=== PATIENT | male | born 1965 | race Caucasian/White ===

== ENCOUNTER 2020-09-22 11:32 | Emergency (ER) | payer OTHER ==
[2020-09-22] MEDS ORDERED: Sodium Chloride 0.9% 10 ML Syringe FLUSH PRN (11:48)
[2020-09-22] MEDS ORDERED: Albuterol/Ipratropium 3.0-0.5 MG/3 ML Neb Soln NEB ONE (12:53)
--- NOTE | 2020-09-22 12:53 | EDM.PDOC ---
ED HPI GENERAL MEDICAL PROBLEM - General Chief Complaint: Respiratory Problem Stated Complaint: LOW O2 SATS Time Seen by Provider: 09/22/20 11:46 Source of Information: Reports: Patient, RN Notes Reviewed History Limitations: Reports: No Limitations - History of Present Illness INITIAL COMMENTS - FREE TEXT/NARRATIVE: Patient is a 54-year-old male presenting to the emergency department with complaints of a low oxygen saturation cough, shortness of breath over the course of the last week. Patient has a history of COPD and does have home oxygen. States he normally just uses 4 L of oxygen in the evenings, however for the last week he has been using supplemental O2 during the day as well. He was seen by his primary care provider, Dr. Lizbeth Hayward, 1 week ago and started on prednisone 40 mg daily. States he finished this today. Chest x-ray was done at that time and found to be normal as well. Patient feels that his symptoms have not improved with the steroids. He denies any fevers, but states he has had some intermittent chills. Denies any nausea, vomiting, diarrhea, or loss of taste and smell. He has albuterol nebulizer treatments at home. States his last igor atment was around 7:00 this morning. Right Chest Pain Score (Numeric/FACES): 3 - Related Data Allergies Allergy/AdvReac Type Severity Reaction Status Date / Time No Known Allergies Allergy Verified 09/22/20 11:46 Home Meds: Home Meds Albuterol [Proventil Neb Soln] 1 ampule INH BID PRN 11/15/15 [History] Albuterol [Ventolin HFA] 2 puff INH DAILY 11/15/15 [History] Budesonide/Formoterol [Symbicort 160-4.5 MCG] 2 puff INH DAILY 11/15/15 [History] Losartan/Hydrochlorothiazide [Losartan-HCTZ 100-12.5 MG] 1 tab PO DAILY 11/15/15 [History] Albuterol/Ipratropium [DuoNeb 3.0-0.5 MG/3 ML] 3 ml .XX Q4H PRN #20 neb 09/22/20 [Rx] levoFLOXacin [Levaquin] 750 mg PO DAILY #6 tab 09/22/20 [Rx] Past Medical History HEENT History: Reports: Impaired Vision Other HEENT History: Wears glasses Cardiovascular History: Reports: Hypertension Respiratory History: Reports: COPD, SOB - Past Surgical History Musculoskeletal Surgical History: Reports: Carpal Tunnel Social & Family History - Family History Cardiac: Reports: [place] - Caffeine Use Caffeine Use: Reports: Coffee - Recreational Drug Use Recreational Drug Use: No - Living Situation & Occupation Living situation: Reports: Occupation: Employed ED ROS GENERAL - Review of Systems Review Of Systems: See Below Constitutional: Reports: Chills. Denies: Fever, Weakness HEENT: Reports: No Symptoms Respiratory: Reports: Shortness of Breath, Wheezing, Pleuritic Chest Pain, Cough Cardiovascular: Reports: Dyspnea on Exertion. Denies: Lightheadedness, Palpitations, Syncope Endocrine: Reports: No Symptoms GI/Abdominal: Reports: No Symptoms : Reports: No Symptoms Musculoskeletal: Reports: No Symptoms Skin: Reports: No Symptoms Neurological: Reports: No Symptoms Psychiatric: Reports: No Symptoms Hematologic/Lymphatic: Reports: No Symptoms Immunologic: Reports: No Symptoms ED EXAM, GENERAL - Physical Exam Exam: See Below Exam Limited By: No Limitations General Appearance: Alert, WD/WN, No Apparent Distress Respiratory/Chest: No Respiratory Distress, No Accessory Muscle Use, Chest Non- Tender, Wheezing (Faint expiratory) Cardiovascular: Normal Peripheral Pulses, Regular Rate, Rhythm, No Edema, No Gallop, No JVD, No Murmur, No Rub GI/Abdominal: Normal Bowel Sounds, Soft, Non-Tender, No Organomegaly, No Distention, No Abnormal Bruit, No Mass Neurological: Alert, Oriented, CN II-XII Intact, Normal Cognition, Normal Gait, Normal Reflexes, No Motor/Sensory Deficits Psychiatric: Normal Affect, Normal Mood Skin Exam: Warm, Dry, Intact, Normal Color, No Rash Course - Vital Signs Last Recorded V/S: Last Vital Signs Temp 97.6 F 09/22/20 14:05 Pulse 94 09/22/20 14:05 Resp 18 09/22/20 14:05 BP 107/75 09/22/20 14:05 Pulse Ox 94 L 09/22/20 14:05 - Orders/Labs/Meds Orders: Active Orders 24 hr Category Date Time Status Chest 1V Frontal [CR] Stat Exams 09/22/20 11:48 Taken Peripheral IV Insertion Adult [OM.PC] Stat Oth 09/22/20 11:48 Ordered Labs: Laboratory Tests 09/22/20 09/22/2020 Range/Units 11:54 12:15 12:15 WBC 16.06 H (4.23-9.07) K/mm3 RBC 4.24 L (4.63-6.08) M/mm3 Hgb 13.0 L D (13.7-17.5) gm/dl Hct 40.5 (40.1-51.0) % MCV 95.5 H (79.0-92.2) fl MCH 30.7 (25.7-32.2) pg MCHC 32.1 L (32.2-35.5) g/dl RDW Std Deviation 44.3 H (35.1-43.9) fL Plt Count 253 (163-337) K/mm3 MPV 10.2 (9.4-12.3) fl Neut % (Auto) 92.2 H (34.0-67.9) % Lymph % (Auto) 3.9 L (21.8-53.1) % [place] % (Auto) 3.6 L (5.3-12.2) % Eos % (Auto) 0.1 L (0.8-7.0) Baso % (Auto) 0.1 (0.1-1.2) % Neut # (Auto) 14.80 H (1.78-5.38) K/mm3 Lymph # (Auto) 0.62 L (1.32-3.57) K/mm3 [place] # (Auto) 0.58 (0.30-0.82) K/mm3 Eos # (Auto) 0.02 L (0.04-0.54) K/mm3 Baso # (Auto) 0.02 (0.01-0.08) K/mm3 Manual Slide Review Abnormal smear D-Dimer, Quantitative 0.50 (0.19-0.50) mg/L Sodium (136-145) mEq/L Potassium (3.5-5.1) mEq/L Chloride (98-107) mEq/L Carbon Dioxide (21-32) mEq/L Anion Gap (5-15) BUN (7-18) mg/dL Creatinine (0.7-1.3) mg/dL Est Cr Clr Drug Dosing mL/min Estimated GFR (MDRD) (>60) mL/min BUN/Creatinine Ratio (14-18) Glucose (74-106) mg/dL Lactic Acid (0.4-2.0) mmol/L Calcium (8.5-10.1) mg/dL Ferritin (26-388) ng/ml Total Bilirubin (0.2-1.0) mg/dL AST (15-37) U/L ALT (16-63) U/L Alkaline Phosphatase (46-116) U/L Lactate Dehydrogenase (85-227) U/L Troponin I (0.00-0.056) ng/mL C-Reactive Protein (<1.0) mg/dL NT-Pro-B Natriuret Pep (0-125) pg/mL Total Protein (6.4-8.2) g/dl Albumin (3.4-5.0) g/dl Globulin gm/dL Albumin/Globulin Ratio (1-2) SARS-CoV-2 RNA (RACHELLE) Negative (NEGATIVE) 09/22/20 09/22/20 09/22/20 Range/Units 12:15 12:15 12:15 WBC (4.23-9.07) K/mm3 RBC (4.63-6.08) M/mm3 Hgb (13.7-17.5) gm/dl Hct (40.1-51.0) % MCV (79.0-92.2) fl MCH (25.7-32.2) pg MCHC (32.2-35.5) g/dl RDW Std Deviation (35.1-43.9) fL Plt Count (163-337) K/mm3 MPV (9.4-12.3) fl Neut % (Auto) (34.0-67.9) % Lymph % (Auto) (21.8-53.1) % [place] % (Auto) (5.3-12.2) % Eos % (Auto) (0.8-7.0) Baso % (Auto) (0.1-1.2) % Neut # (Auto) (1.78-5.38) K/mm3 Lymph # (Auto) (1.32-3.57) K/mm3 [place] # (Auto) (0.30-0.82) K/mm3 Eos # (Auto) (0.04-0.54) K/mm3 Baso # (Auto) (0.01-0.08) K/mm3 Manual Slide Review D-Dimer, Quantitative (0.19-0.50) mg/L Sodium 132 L (136-145) mEq/L Potassium 3.5 (3.5-5.1) mEq/L Chloride 96 L (98-107) mEq/L Carbon Dioxide 29 (21-32) mEq/L Anion Gap 10.5 (5-15) BUN 20 H (7-18) mg/dL Creatinine 0.9 (0.7-1.3) mg/dL Est Cr Clr Drug Dosing 95.76 mL/min Estimated GFR (MDRD) > 60 (>60) mL/min BUN/Creatinine Ratio 22.2 H (14-18) Glucose 120 H (74-106) mg/dL Lactic Acid 0.8 (0.4-2.0) mmol/L Calcium 8.8 (8.5-10.1) mg/dL Ferritin (26-388) ng/ml Total Bilirubin 0.9 (0.2-1.0) mg/dL AST 21 (15-37) U/L ALT 25 (16-63) U/L Alkaline Phosphatase 67 (46-116) U/L Lactate Dehydrogenase (85-227) U/L Troponin I < 0.017 (0.00-0.056) ng/mL C-Reactive Protein 18.2 H* (<1.0) mg/dL NT-Pro-B Natriuret Pep 87 (0-125) pg/mL Total Protein 7.3 (6.4-8.2) g/dl Albumin 3.1 L (3.4-5.0) g/dl Globulin 4.2 gm/dL Albumin/Globulin Ratio 0.7 L (1-2) SARS-CoV-2 RNA (RACHELLE) (NEGATIVE) 09/22/20 09/22/20 Range/Units 12:15 12:15 WBC (4.23-9.07) K/mm3 RBC (4.63-6.08) M/mm3 Hgb (13.7-17.5) gm/dl Hct (40.1-51.0) % MCV (79.0-92.2) fl MCH (25.7-32.2) pg MCHC (32.2-35.5) g/dl RDW Std Deviation (35.1-43.9) fL Plt Count (163-337) K/mm3 MPV (9.4-12.3) fl Neut % (Auto) (34.0-67.9) % Lymph % (Auto) (21.8-53.1) % [place] % (Auto) (5.3-12.2) % Eos % (Auto) (0.8-7.0) Baso % (Auto) (0.1-1.2) % Neut # (Auto) (1.78-5.38) K/mm3 Lymph # (Auto) (1.32-3.57) K/mm3 [place] # (Auto) (0.30-0.82) K/mm3 Eos # (Auto) (0.04-0.54) K/mm3 Baso # (Auto) (0.01-0.08) K/mm3 Manual Slide Review D-Dimer, Quantitative (0.19-0.50) mg/L Sodium (136-145) mEq/L Potassium (3.5-5.1) mEq/L Chloride (98-107) mEq/L Carbon Dioxide (21-32) mEq/L Anion Gap (5-15) BUN (7-18) mg/dL Creatinine (0.7-1.3) mg/dL Est Cr Clr Drug Dosing mL/min Estimated GFR (MDRD) (>60) mL/min BUN/Creatinine Ratio (14-18) Glucose (74-106) mg/dL Lactic Acid (0.4-2.0) mmol/L Calcium (8.5-10.1) mg/dL Ferritin 782 H (26-388) ng/ml Total Bilirubin (0.2-1.0) mg/dL AST (15-37) U/L ALT (16-63) U/L Alkaline Phosphatase (46-116) U/L Lactate Dehydrogenase 165 (85-227) U/L Troponin I (0.00-0.056) ng/mL C-Reactive Protein (<1.0) mg/dL NT-Pro-B Natriuret Pep (0-125) pg/mL Total Protein (6.4-8.2) g/dl Albumin (3.4-5.0) g/dl Globulin gm/dL Albumin/Globulin Ratio (1-2) SARS-CoV-2 RNA (RACHELLE) (NEGATIVE) Meds: Medications Discontinued Medications Generic Name Dose Route Start Last Admin Trade Name Jer[place]o PRN Reason Stop Dose Admin Albuterol/Ipratropium 3 ml 09/22/20 12:53 09/22/20 13:04 Duoneb 3.0-0.5 Mg/3 Ml NEB 09/22/20 12:54 3 ml ONETIME ONE Administration Levofloxacin 750 mg 09/22/20 13:50 09/22/20 13:58 Levaquin PO 09/22/20 13:51 750 mg ONETIME ONE Administration Sodium Chloride 10 ml 09/22/20 11:48 09/22/20 12:15 Saline Flush FLUSH 10 ml ASDIRECTED PRN Administration Keep Vein Open - Re-Assessments/Exams Free Text/Narrative Re-Assessment/Exam: Patient is a 54-year-old male presenting to the emergency department with complaints of ongoing cough and shortness of breath. He has a history of COPD and was placed on prednisone 40 mg daily 1 week ago. He states he has had little to no improvement in symptoms since the onset of steroid treatment. He has had occasional chills but denies any known fever. Denies any gastrointestinal complaints. Oxygen saturation at rest was 93 to 94% on room air. I have ordered septic work-up, chest x-ray, EKG as well as a 1 hour Covid test. 09/22/20 13:53 Hematology was significant for a WBC elevated at 16.06, hemoglobin 13.0, sodium 132, BUN 20, ferritin 782, CRP 18.2. Patient was found to be Covid negative. Chest x-ray shows increased density in the right lower lobe likely consistent with a bacterial pneumonia. As there is no organ dysfunction, patient rules out for severe sepsis. We will start the patient on oral Levaquin. I will also send a prescription for DuoNeb's as opposed to his albuterol. Recommend continuing use of home oxygen as needed. Discussed return precautions. Discharge instructions as documented. Departure - Departure Time of Disposition: 13:54 Disposition: Home, Self-Care 01 Condition: Good Clinical Impression: COPD exacerbation Pneumonia Qualifiers: Pneumonia type: due to unspecified organism Laterality: right Lung location: lower lobe of lung Qualified Code(s): J18.9 - Pneumonia, unspecified organism - Discharge Information *PRESCRIPTION DRUG MONITORING PROGRAM REVIEWED*: No *COPY OF PRESCRIPTION DRUG MONITORING REPORT IN PATIENT DARON: No Prescriptions: Albuterol/Ipratropium [DuoNeb 3.0-0.5 MG/3 ML] 3 ml .XX Q4H PRN #20 neb PRN Reason: Shortness Of Breath levoFLOXacin [Levaquin] 750 mg PO DAILY #6 tab Instructions: Chronic Obstructive Pulmonary Disease Exacerbation, [id number], Community-Acquired Pneumonia, Adult, [id number] Referrals: Martin Hernandez MD [Primary Care Provider] - Forms: ED Department Discharge Additional Instructions: You were seen in the emergency department today for ongoing shortness of breath and cough over the course the last week. Work-up included blood work, chest x- ray, EKG, and a Covid test. Results of your work-up are consistent with a COPD exacerbation with pneumonia. Your Covid test was negative. You have been started on an antibiotic, Levaquin. Take this medication as prescribed. A prescription for DuoNeb breathing treatments is also been prescribed. Use these every 4 hours as needed. This replaces your albuterol breathing treatments. Continue to use your home oxygen as needed. If you are experiencing any worsening symptoms, please not hesitate to return to the emergency department. Sepsis Event Note (ED) - Evaluation Sepsis Screening Result: Sepsis Risk - Focused Exam Vital Signs: Vital Signs Temp Pulse Resp BP Pulse Ox Pulse Ox 09/22/20 14:05 97.6 F 94 18 107/75 94 L 09/22/20 13:05 93 L 09/22/20 11:38 98.6 F 102 H 22 H 129/93 H 90 L - My Orders Last 24 Hours: My Active Orders 09/22/20 11:48 Chest 1V Frontal [CR] Stat Peripheral IV Insertion Adult [OM.PC] Stat - Assessment/Plan Last 24 Hours: My Active Orders 09/22/20 11:48 Chest 1V Frontal [CR] Stat Peripheral IV Insertion Adult [OM.PC] Stat
[2020-09-22] MEDS ORDERED: Levofloxacin 750 MG Tab PO ONE (13:50)
[2020-09-22 14:06] VITALS: BP 107/75; PULSE 94
--- NOTE | 2020-09-23 07:41 | CR ---
Chest: Portable view of the chest was obtained. Comparison: Prior chest x-ray of 09/14/16. Findings: Osseous: Heart size and mediastinum are within normal limits. Lungs: Mild increased density noted within the right lung base. Lungs otherwise are clear. Osseous: Bony structures are grossly intact. Impression: 1. Mild increased density with right lung base. Findings are suspicious for small area of pneumonia. Diagnostic code #3
== END 2020-09-22 14:12 | disposition home or self-care (01) ==
LOC: JD.ED 11:32
DX: J44.1 Chronic obstructive pulmonary disease with (acute) exacerbation (principal); J18.9 Pneumonia, unspecified organism; I10 Essential (primary) hypertension; Z79.899 Other long term (current) drug therapy; Z20.828 Contact with and (suspected) exposure to other viral communicable diseases
CPT/HCPCS: 36415; 71045; 71045-26; 80053; 82728; 83605; 83615; 83880; 84484; 85025; 85379; 86140; 93005; 93010; 94640; 99284; 99285-25; A9270-GY; J7620-GY; U0002

== ENCOUNTER 2021-10-22 16:26 | Inpatient (IN) | payer MEDICARE, OTHER ==
[2021-10-22] MEDS ORDERED: Sodium Chloride 0.9% 10 ML Syringe FLUSH PRN (16:32)
[2021-10-22] MEDS ORDERED: Albuterol/Ipratropium 3.0-0.5 MG/3 ML Neb Soln NEB ONE ×2 (16:33→18:13)
[2021-10-22] MEDS ORDERED: Albuterol/Ipratropium 3.0-0.5 MG/3 ML Neb Soln ONE (16:34)
[2021-10-22] MEDS ORDERED: methylPREDNISolone Sodium Succinate 125 MG/2 ML SDV IVPUSH ONE (16:34)
[2021-10-22] MEDS ORDERED: Magnesium Sulfate/Water 2 GM in Premix Bag 1 BAG IV ONE (16:34)
[2021-10-22] MEDS ORDERED: FLU Vacc QS2021-22 36MOS UP/PF 60 MCG/0.5 ML Syringe IM ONE (17:15)
[2021-10-22 19:00] LABS: CORONAVIRUS COVID-19 NAA NEGATIVE (NEGATIVE)
[2021-10-22] MEDS: Oseltamivir 75 MG Cap PO SCH (23:34)
[2021-10-22] MEDS: Albuterol/Ipratropium 3.0-0.5 MG/3 ML Neb Soln NEB SCH (23:36)
[2021-10-23] MEDS: Albuterol/Ipratropium 3.0-0.5 MG/3 ML Neb Soln NEB SCH ×4 (01:57→21:12)
[2021-10-23] MEDS ORDERED: LORazepam 2 MG/ML SDV IVPUSH PRN (07:10)
[2021-10-23] MEDS ORDERED: Albuterol 6.7 GM Inhaler INH PRN (08:10)
[2021-10-23] MEDS ORDERED: Ondansetron 4 MG Tab.DIS PO PRN (08:10)
[2021-10-23] MEDS ORDERED: Albuterol/Ipratropium 3.0-0.5 MG/3 ML Neb Soln NEB PRN (08:10)
[2021-10-23] MEDS ORDERED: Ondansetron 4 MG/2 ML SDV IV PRN (08:10)
[2021-10-23] MEDS: Oseltamivir 75 MG Cap PO SCH ×2 (08:27→20:55)
[2021-10-23] MEDS ORDERED: methylPREDNISolone Sodium Succinate 40 MG/1 ML SDV IVPUSH SCH (09:00)
[2021-10-23] MEDS ORDERED: Enoxaparin 40 MG/0.4 ML Syringe SUBCUT ONE (09:15)
[2021-10-23] MEDS: Nicotine 14 MG/24 Hr Patch TRDERM SCH (10:39)
[2021-10-23] MEDS: Sodium Chloride 0.9% 1,000 ML IV SCH ×2 (10:50→20:56)
[2021-10-23] MEDS: Azithromycin 500 MG in Sodium Chloride 0.9% 250 ML IV SCH (10:54)
[2021-10-23] MEDS ORDERED: Sodium Chloride 0.9% 10 ML Syringe FLUSH PRN (13:28)
[2021-10-23] MEDS ORDERED: Iopamidol 612 MG/ML 100 ML Bottle IVPUSH ONE (13:28)
[2021-10-23] MEDS: guaiFENesin 600 MG Tab.ER PO SCH ×2 (13:54→20:54)
[2021-10-23] MEDS: methylPREDNISolone Sodium Succinate 40 MG/1 ML SDV IVPUSH SCH (20:55)
[2021-10-24] MEDS: Albuterol/Ipratropium 3.0-0.5 MG/3 ML Neb Soln NEB SCH ×4 (06:15→20:25)
[2021-10-24] MEDS: methylPREDNISolone Sodium Succinate 40 MG/1 ML SDV IVPUSH SCH ×2 (08:30→21:25)
[2021-10-24] MEDS: guaiFENesin 600 MG Tab.ER PO SCH ×2 (08:31→21:26)
[2021-10-24] MEDS: Oseltamivir 75 MG Cap PO SCH ×2 (08:31→21:26)
[2021-10-24] MEDS: Enoxaparin 40 MG/0.4 ML Syringe SUBCUT SCH (08:31)
[2021-10-24] MEDS: Azithromycin 500 MG in Sodium Chloride 0.9% 250 ML IV SCH (08:31)
[2021-10-24] MEDS: Nicotine 14 MG/24 Hr Patch TRDERM SCH (08:32)
[2021-10-24] MEDS: Doxycycline 100 MG in Sodium Chloride 0.9% 100 ML IV SCH ×2 (09:53→21:25)
[2021-10-25] MEDS: Albuterol/Ipratropium 3.0-0.5 MG/3 ML Neb Soln NEB SCH ×4 (06:30→20:37)
[2021-10-25] MEDS: guaiFENesin 600 MG Tab.ER PO SCH ×2 (09:30→20:53)
[2021-10-25] MEDS: Oseltamivir 75 MG Cap PO SCH ×2 (09:30→20:53)
[2021-10-25] MEDS: Enoxaparin 40 MG/0.4 ML Syringe SUBCUT SCH (09:31)
[2021-10-25] MEDS: Doxycycline 100 MG in Sodium Chloride 0.9% 100 ML IV SCH ×2 (09:32→20:55)
[2021-10-25] MEDS: methylPREDNISolone Sodium Succinate 40 MG/1 ML SDV IVPUSH SCH ×2 (09:36→20:54)
[2021-10-25] MEDS: Nicotine 14 MG/24 Hr Patch TRDERM SCH (09:50)
[2021-10-25] MEDS: Pravastatin 20 MG Tab PO SCH (20:54)
[2021-10-26] MEDS: Albuterol/Ipratropium 3.0-0.5 MG/3 ML Neb Soln NEB SCH ×4 (06:06→20:41)
[2021-10-26] MEDS: methylPREDNISolone Sodium Succinate 40 MG/1 ML SDV IVPUSH SCH (08:12)
[2021-10-26] MEDS: guaiFENesin 600 MG Tab.ER PO SCH ×2 (08:12→20:00)
[2021-10-26] MEDS: amLODIPine 2.5 MG Tab PO SCH (08:13)
[2021-10-26] MEDS: Oseltamivir 75 MG Cap PO SCH ×2 (08:13→20:00)
[2021-10-26] MEDS: Nicotine 14 MG/24 Hr Patch TRDERM SCH (08:18)
[2021-10-26] MEDS: Enoxaparin 40 MG/0.4 ML Syringe SUBCUT SCH (08:18)
[2021-10-26] MEDS: Doxycycline 100 MG in Sodium Chloride 0.9% 100 ML IV SCH (08:18)
[2021-10-26] MEDS: predniSONE 20 MG Tab PO SCH (20:00)
[2021-10-26] MEDS: Doxycycline 100 MG Cap PO SCH (20:00)
[2021-10-26] MEDS: Pravastatin 20 MG Tab PO SCH (20:00)
[2021-10-27] MEDS: Albuterol/Ipratropium 3.0-0.5 MG/3 ML Neb Soln NEB SCH ×4 (05:50→20:29)
[2021-10-27] MEDS ORDERED: LORazepam 2 MG/ML SDV IVPUSH ONE ×2 (07:38→10:00)
[2021-10-27] MEDS: Albuterol 0.083% 2.5 MG/3 ML Neb Soln NEB PRN (07:52)
[2021-10-27] MEDS ORDERED: LORazepam 2 MG/ML SDV IVPUSH STA ×2 (08:58→13:14)
[2021-10-27] MEDS: Enoxaparin 40 MG/0.4 ML Syringe SUBCUT SCH (09:20)
[2021-10-27] MEDS: amLODIPine 2.5 MG Tab PO SCH (09:23)
[2021-10-27] MEDS: guaiFENesin 600 MG Tab.ER PO SCH ×2 (09:24→20:51)
[2021-10-27] MEDS: Losartan 100 MG Tab PO SCH (09:24)
[2021-10-27] MEDS: predniSONE 20 MG Tab PO SCH (09:25)
[2021-10-27] MEDS: Oseltamivir 75 MG Cap PO SCH (09:25)
[2021-10-27] MEDS: Doxycycline 100 MG Cap PO SCH ×2 (09:26→20:50)
[2021-10-27] MEDS ORDERED: LORazepam 2 MG/ML SDV ONE ×2 (10:11→13:15)
[2021-10-27] MEDS: Pravastatin 20 MG Tab PO SCH (20:50)
[2021-10-28] MEDS: Albuterol 0.083% 2.5 MG/3 ML Neb Soln NEB PRN (00:25)
[2021-10-28] MEDS ORDERED: LORazepam 2 MG/ML SDV IVPUSH ONE ×3 (03:15→18:34)
[2021-10-28] MEDS ORDERED: LORazepam 2 MG/ML SDV ONE ×2 (03:19→15:47)
[2021-10-28] MEDS: Albuterol/Ipratropium 3.0-0.5 MG/3 ML Neb Soln NEB SCH ×4 (05:23→20:44)
[2021-10-28] MEDS: methylPREDNISolone Sodium Succinate 125 MG/2 ML SDV IVPUSH SCH (09:16)
[2021-10-28] MEDS: Enoxaparin 40 MG/0.4 ML Syringe SUBCUT SCH (09:16)
[2021-10-28] MEDS: guaiFENesin 600 MG Tab.ER PO SCH ×2 (09:16→20:41)
[2021-10-28] MEDS: Doxycycline 100 MG Cap PO SCH ×2 (09:16→20:41)
[2021-10-28] MEDS: Losartan 100 MG Tab PO SCH (09:17)
[2021-10-28] MEDS: amLODIPine 2.5 MG Tab PO SCH (09:18)
[2021-10-28] MEDS ORDERED: Magnesium Sulfate/Water 2 GM in Premix Bag 1 BAG IV ONE (10:30)
[2021-10-28] MEDS: Pravastatin 20 MG Tab PO SCH (20:41)
[2021-10-29] MEDS: Albuterol/Ipratropium 3.0-0.5 MG/3 ML Neb Soln NEB SCH ×4 (05:24→20:13)
[2021-10-29] MEDS: Enoxaparin 40 MG/0.4 ML Syringe SUBCUT SCH (09:01)
[2021-10-29] MEDS: amLODIPine 2.5 MG Tab PO SCH (09:02)
[2021-10-29] MEDS: guaiFENesin 600 MG Tab.ER PO SCH ×2 (09:02→20:36)
[2021-10-29] MEDS: Doxycycline 100 MG Cap PO SCH (09:03)
[2021-10-29] MEDS: methylPREDNISolone Sodium Succinate 125 MG/2 ML SDV IVPUSH SCH (09:03)
[2021-10-29] MEDS: Losartan 100 MG Tab PO SCH (09:03)
[2021-10-29] MEDS ORDERED: LORazepam 2 MG/ML SDV IVPUSH ONE (11:49)
[2021-10-29] MEDS ORDERED: LORazepam 2 MG/ML SDV ONE (11:51)
[2021-10-29] MEDS: Acetaminophen 325 MG Tab PO PRN (20:36)
[2021-10-29] MEDS: Pravastatin 20 MG Tab PO SCH (20:38)
[2021-10-29] MEDS: diphenhydrAMINE 25 MG Cap PO PRN (20:38)
[2021-10-30] MEDS: Albuterol/Ipratropium 3.0-0.5 MG/3 ML Neb Soln NEB SCH ×4 (05:38→21:11)
[2021-10-30] MEDS ORDERED: predniSONE 20 MG Tab PO SCH (07:34)
[2021-10-30] MEDS: Losartan 100 MG Tab PO SCH (09:42)
[2021-10-30] MEDS: Enoxaparin 40 MG/0.4 ML Syringe SUBCUT SCH (09:42)
[2021-10-30] MEDS: amLODIPine 2.5 MG Tab PO SCH (09:43)
[2021-10-30] MEDS: guaiFENesin 600 MG Tab.ER PO SCH ×2 (09:43→22:56)
[2021-10-30] MEDS: diphenhydrAMINE 25 MG Cap PO PRN (22:57)
[2021-10-30] MEDS: Pravastatin 20 MG Tab PO SCH (22:57)
[2021-10-31] MEDS: Albuterol/Ipratropium 3.0-0.5 MG/3 ML Neb Soln NEB SCH ×4 (05:22→21:13)
[2021-10-31] MEDS ORDERED: predniSONE 20 MG Tab PO SCH (07:00)
[2021-10-31] MEDS: guaiFENesin 600 MG Tab.ER PO SCH ×2 (08:19→20:45)
[2021-10-31] MEDS: Enoxaparin 40 MG/0.4 ML Syringe SUBCUT SCH (08:19)
[2021-10-31] MEDS: predniSONE 20 MG Tab PO SCH (08:19)
[2021-10-31] MEDS: Losartan 100 MG Tab PO SCH (08:24)
[2021-10-31] MEDS: amLODIPine 2.5 MG Tab PO SCH (08:25)
[2021-10-31] MEDS: Acetaminophen 325 MG Tab PO PRN ×2 (08:37→16:55)
[2021-10-31] MEDS: diphenhydrAMINE 25 MG Cap PO PRN (20:46)
[2021-10-31] MEDS: Pravastatin 20 MG Tab PO SCH (20:46)
[2021-11-01] MEDS: Albuterol/Ipratropium 3.0-0.5 MG/3 ML Neb Soln NEB SCH ×4 (05:43→20:37)
[2021-11-01] MEDS: predniSONE 20 MG Tab PO SCH (08:12)
[2021-11-01] MEDS: Enoxaparin 40 MG/0.4 ML Syringe SUBCUT SCH (08:14)
[2021-11-01] MEDS: guaiFENesin 600 MG Tab.ER PO SCH ×2 (08:14→21:41)
[2021-11-01] MEDS: Losartan 100 MG Tab PO SCH (11:15)
[2021-11-01] MEDS: amLODIPine 2.5 MG Tab PO SCH (13:44)
[2021-11-01] MEDS: Phenol 1.4% Oral Spray 177 ML Bottle MUCMEM PRN ×2 (15:58→21:45)
[2021-11-01] MEDS: Pravastatin 20 MG Tab PO SCH (21:41)
[2021-11-02] MEDS: Phenol 1.4% Oral Spray 177 ML Bottle MUCMEM PRN ×3 (04:12→12:21)
[2021-11-02] MEDS: Albuterol/Ipratropium 3.0-0.5 MG/3 ML Neb Soln NEB SCH (05:29)
[2021-11-02] MEDS ORDERED: predniSONE 20 MG Tab PO SCH (07:00)
[2021-11-02 08:06] VITALS: PULSE 92
[2021-11-02] MEDS: guaiFENesin 600 MG Tab.ER PO SCH (08:21)
[2021-11-02] MEDS: Enoxaparin 40 MG/0.4 ML Syringe SUBCUT SCH (08:21)
[2021-11-02] MEDS ORDERED: Albuterol/Ipratropium 3.0-0.5 MG/3 ML Neb Soln NEB PRN (08:49)
[2021-11-02] MEDS: amLODIPine 2.5 MG Tab PO SCH (09:57)
[2021-11-02] MEDS: Losartan 100 MG Tab PO SCH (09:57)
[2021-11-02 11:50] VITALS: BP 115/78
[2021-11-02] MEDS: Acetaminophen 325 MG Tab PO PRN (12:21)
== END 2021-11-02 16:18 | disposition home health service (06) | DRG 193 ==
LOC: JD.ED 16:26 → JD.MS 20:21 → JD.ICU 10-27 11:18 → JD.MS 10-30 14:30
PROVIDERS: ADMIT Family Medicine; ATTEND Internal Medicine
PROC: 5A09457 Assistance with Respiratory Ventilation, 24-96 Consecutive Hours, Continuous Positive Airway Pressure (ICD-10-PCS; principal; 2021-10-22)
DX: J10.1 Influenza due to other identified influenza virus with other respiratory manifestations (principal); J10.00 Influenza due to other identified influenza virus with unspecified type of pneumonia; R09.02 Hypoxemia; J96.21 Acute and chronic respiratory failure with hypoxia; J96.22 Acute and chronic respiratory failure with hypercapnia; N17.9 Acute kidney failure, unspecified; J44.1 Chronic obstructive pulmonary disease with (acute) exacerbation; Z20.822 Contact with and (suspected) exposure to COVID-19; I10 Essential (primary) hypertension; Z87.01 Personal history of pneumonia (recurrent); Z99.81 Dependence on supplemental oxygen; F17.210 Nicotine dependence, cigarettes, uncomplicated; Z78.1 Physical restraint status; F41.9 Anxiety disorder, unspecified; K59.00 Constipation, unspecified; Z79.899 Other long term (current) drug therapy; H54.7 Unspecified visual loss; Z86.19 Personal history of other infectious and parasitic diseases
CPT/HCPCS: 0240U; 36415; 36600; 51798; 71045; 74177; 80048; 80053; 81001; 82803; 83735; 84100; 84145; 84484; 85025; 86140; 93005; 94640; 94660; 94667; 94668; 94761; 94762; 96365; 96366; 96375; 97110; 97116; 97162; 99285; A9270-GY; J0456; J1650; J2060; J2920; J2930; J3475; J3490; J7030; J7050; J7512; J7620-GY; Q9967

== ENCOUNTER 2025-03-07 07:19 | Day surgery (SDC) | payer MEDICARE, OTHER ==
[2025-03-07] MEDS: Lidocaine 1% PF 2 ML SDV INJECT SCH (06:54)
[2025-03-07] MEDS: Phenylephrine 2.5% Ophth Soln 2 ML Bot EYERT SCH (06:54)
[2025-03-07] MEDS: Cefuroxime 10 MG/ML SYRINGE EYERT SCH (06:54)
[2025-03-07] MEDS: Tetracaine HCl/PF 0.5% 4 ML Bottle EYEBOTH SCH (06:54)
[2025-03-07] MEDS: Pilocarpine 4% Ophth Soln 15 ML Bot EYERT SCH (06:55)
[2025-03-07] MEDS: Polymyxin B/Trimethoprim 10 ML Bottle EYERT SCH (06:55)
[2025-03-07] MEDS: Brimonidine 0.2% Ophth Soln 5 ML Bottle EYERT SCH (06:55)
[2025-03-07] MEDS: Tropicamide 1% Ophth Soln 3 ML Bottle EYERT SCH (07:46)
[2025-03-07 10:06] VITALS: BP 131/86; PULSE 81
== END 2025-03-07 09:39 | disposition home or self-care (01) ==
LOC: JD.SDS 07:19
PROVIDERS: ATTEND Ophthalmology
DX: H25.813 Combined forms of age-related cataract, bilateral (principal); I10 Essential (primary) hypertension; J44.89 Other specified chronic obstructive pulmonary disease; E78.2 Mixed hyperlipidemia; Z87.891 Personal history of nicotine dependence
CPT/HCPCS: 66984; A9270; J0697; J3490

== ENCOUNTER 2025-04-04 07:34 | Day surgery (SDC) | payer MEDICARE, OTHER ==
[2025-04-04 07:45] VITALS: BP 120/78; PULSE 71
[2025-04-04] MEDS: Polymyxin B/Trimethoprim 10 ML Bottle EYELF SCH (07:45)
[2025-04-04] MEDS: Brimonidine 0.2% Ophth Soln 5 ML Bottle EYELF SCH (07:50)
[2025-04-04] MEDS: Phenylephrine 2.5% Ophth Soln 2 ML Bot EYELF SCH (07:58)
[2025-04-04] MEDS: Tropicamide 1% Ophth Soln 3 ML Bottle EYELF SCH (08:06)
[2025-04-04] MEDS: Tetracaine HCl/PF 0.5% 4 ML Bottle EYEBOTH SCH (09:03)
[2025-04-04] MEDS: Lidocaine 1% PF 2 ML SDV INJECT SCH (09:43)
[2025-04-04] MEDS: Cefuroxime 10 MG/ML SYRINGE EYELF SCH (09:51)
[2025-04-04] MEDS: Pilocarpine 4% Ophth Soln 15 ML Bot EYELF SCH (09:52)
== END 2025-04-04 10:02 | disposition home or self-care (01) ==
LOC: JD.SDS 07:34
PROVIDERS: ATTEND Ophthalmology
DX: H26.9 Unspecified cataract (principal); H25.812 Combined forms of age-related cataract, left eye; H52.31 Anisometropia; H21.81 Floppy iris syndrome; H40.032 Anatomical narrow angle, left eye; H57.813 Brow ptosis, bilateral; H02.831 Dermatochalasis of right upper eyelid; H02.834 Dermatochalasis of left upper eyelid; J44.89 Other specified chronic obstructive pulmonary disease; I10 Essential (primary) hypertension; E78.2 Mixed hyperlipidemia; Z79.899 Other long term (current) drug therapy
CPT/HCPCS: A9270-GY; J3490

== ENCOUNTER 2025-07-19 12:35 | Inpatient (IN) | payer MEDICARE, OTHER ==
[2025-07-19 13:36] LABS: BASE EXCESS ARTERIAL 20.6 (-2-2.0); BICARBONATE,ARTERIAL 50.6 meq/L (22.0-26.0); O2 SATURATION ARTERIAL 98.4 % (96.0-97.0); PCO2 ARTERIAL 96.0 mmHg (35.0-45.0); PO2 ARTERIAL 82.0 mmHg (80.0-100.0)
[2025-07-19 13:44] LABS: BASOPHILS ABSOLUTE AUTO 0.0 K/mm3 (0.0-0.2); BASOPHILS PERCENT AUTO 0.2 % (0.0-1.0); EOSINOPHILS ABSOLUTE AUTO 0.1 K/mm3 (0.0-0.4); EOSINOPHILS PERCENT AUTO 0.3 % (0.0-6.0); IMMATURE GRAN ABSOLUTE AUTO 0.10 K/mm3 (0.00-0.05); IMMATURE GRAN PERCENT AUTO 0.6 % (0.0-0.4); LYMPHOCYTES ABSOLUTE AUTO 1.3 K/mm3 (1.0-4.8); LYMPHOCYTES PERCENT AUTO 7.1 % (24.0-44.0); MEAN PLATELET VOLUME 10.6 fl (9.4-12.4); MONOCYTES ABSOLUTE AUTO 1.2 K/mm3 (0.0-0.8); MONOCYTES PERCENT AUTO 6.6 % (0.0-8.0); NEUTROPHILS ABSOLUTE AUTO 15.2 K/mm3 (1.8-7.7); NEUTROPHILS PERCENT AUTO 85.2 % (41.0-71.0); NRBC ABSOLUTE 0.00 (0.00-0.02); NRBC PERCENT 0.0 % (0.0-0.2); PLATELET COUNT,PLT 178 K/mm3 (150-400); RED BLOOD CELL COUNT 3.47 M/mm3 (4.52-5.90); WHITE BLOOD CELL COUNT,WBC 17.86 K/mm3 (3.9-11.3)
[2025-07-19 14:13] LABS: A/G RATIO 0.9 (1-2); ALANINE AMINOTRANSFERASE,ALT 19.0 U/L (16-63); ASPARTATE AMNIOTRANSFERASE,AST 18.0 U/L (15-37); BILIRUBIN TOTAL 0.6 mg/dL (0.2-1.0); BLOOD UREA NITROGEN,BUN 18.0 mg/dL (7-18); CHLORIDE,CL 93.0 mEq/L (98-107); CREATININE 0.6 mg/dL (0.7-1.3); EST CRCL DRUG DOSING (CG) 143.7 mL/min; ESTIMATED GFR 111.0 mL/min (>60); GLUCOSE RANDOM 129.0 mg/dL (70-99); POTASSIUM,K 4.0 mEq/L (3.5-5.1); PROTEIN TOTAL,TP 6.8 g/dl (6.4-8.2); SODIUM,NA 140.0 mEq/L (136-145); TROPONIN I HIGH SENSITIVITY 10.0 pg/mL (<=76); TSH 0.424 uIU/mL (0.358-3.74)
[2025-07-19 14:23] LABS: CORONAVIRUS COVID-19 NAA NEGATIVE (NEGATIVE); INFLUENZA A NAA NEGATIVE (NEGATIVE); RESPIRATORY SYNCYTIAL VIR NAA NEGATIVE (NEGATIVE)
[2025-07-19 14:30] LABS: CARBON DIOXIDE,CO2 32.0 mEq/L (21-32)
[2025-07-19] MEDS: Sodium Chloride 0.9% 10 ML Syringe FLUSH PRN (14:31)
[2025-07-19 14:57] LABS: APPEARANCE,URINE CLEAR (Clear); GLUCOSE,URINE NEGATIVE (Negative); OCCULT BLOOD,URINE 1+ (Negative)
[2025-07-19 15:05] LABS: EPITHELIAL CELLS,URINE 0-5 /hpf (0-5)
[2025-07-19 16:32] LABS: O2 SATURATION ARTERIAL 95.4 % (96.0-97.0); PCO2 ARTERIAL 83.0 mmHg (35.0-45.0); PO2 ARTERIAL 62.0 mmHg (80.0-100.0)
[2025-07-19 16:33] LABS: BASE EXCESS ARTERIAL 22.8 (-2-2.0); BICARBONATE,ARTERIAL 51.4 meq/L (22.0-26.0)
[2025-07-19] MEDS: cefTRIAXone 1 GM in Water For Injection, Sterile 10 ML IVPUSH ONE (17:22)
[2025-07-19] MEDS ORDERED: Albuterol 0.083% 2.5 MG/3 ML Neb Soln NEB PRN (20:35)
[2025-07-19] MEDS: Levofloxacin/Dextrose 5%-Water 750 MG in Premix Bag 1 BAG IV SCH (21:25)
[2025-07-19] MEDS: methylPREDNISolone Sodium Succinate 40 MG/1 ML SDV IVPUSH SCH (21:37)
[2025-07-19 22:02] LABS: PCO2 ARTERIAL 72.0 mmHg (35.0-45.0); PO2 ARTERIAL 59.0 mmHg (80.0-100.0)
[2025-07-19 22:03] LABS: BASE EXCESS ARTERIAL 22.6 (-2-2.0); BICARBONATE,ARTERIAL 50 meq/L (22.0-26.0); O2 SATURATION ARTERIAL 95.2 % (96.0-97.0)
[2025-07-20 06:18] LABS: BASOPHILS ABSOLUTE AUTO 0.0 K/mm3 (0.0-0.2); BASOPHILS PERCENT AUTO 0.1 % (0.0-1.0); EOSINOPHILS ABSOLUTE AUTO 0.0 K/mm3 (0.0-0.4); EOSINOPHILS PERCENT AUTO 0.0 % (0.0-6.0); IMMATURE GRAN ABSOLUTE AUTO 0.13 K/mm3 (0.00-0.05); IMMATURE GRAN PERCENT AUTO 0.8 % (0.0-0.4); LYMPHOCYTES ABSOLUTE AUTO 0.4 K/mm3 (1.0-4.8); LYMPHOCYTES PERCENT AUTO 2.6 % (24.0-44.0); MEAN PLATELET VOLUME 11.1 fl (9.4-12.4); MONOCYTES ABSOLUTE AUTO 0.2 K/mm3 (0.0-0.8); MONOCYTES PERCENT AUTO 1.3 % (0.0-8.0); NEUTROPHILS ABSOLUTE AUTO 16.1 K/mm3 (1.8-7.7); NEUTROPHILS PERCENT AUTO 95.2 % (41.0-71.0); NRBC ABSOLUTE 0.00 (0.00-0.02); NRBC PERCENT 0.0 % (0.0-0.2); PLATELET COUNT,PLT 179 K/mm3 (150-400); RED BLOOD CELL COUNT 3.35 M/mm3 (4.52-5.90); WHITE BLOOD CELL COUNT,WBC 16.93 K/mm3 (3.9-11.3)
[2025-07-20 06:44] LABS: A/G RATIO 1.0 (1-2); ALANINE AMINOTRANSFERASE,ALT 21.0 U/L (16-63); ASPARTATE AMNIOTRANSFERASE,AST 18.0 U/L (15-37); BILIRUBIN TOTAL 0.5 mg/dL (0.2-1.0); BLOOD UREA NITROGEN,BUN 17.0 mg/dL (7-18); CHLORIDE,CL 94.0 mEq/L (98-107); CREATININE 0.6 mg/dL (0.7-1.3); EST CRCL DRUG DOSING (CG) 126.67 mL/min; ESTIMATED GFR 111.0 mL/min (>60); GLUCOSE RANDOM 128.0 mg/dL (70-99); POTASSIUM,K 3.9 mEq/L (3.5-5.1); PROTEIN TOTAL,TP 6.7 g/dl (6.4-8.2); SODIUM,NA 140.0 mEq/L (136-145)
[2025-07-20 07:02] LABS: CARBON DIOXIDE,CO2 43.0 mEq/L (21-32)
[2025-07-20] MEDS ORDERED: Naloxone 0.4 MG/ML SDV IVPUSH PRN (08:08)
[2025-07-20 13:11] LABS: BASE EXCESS ARTERIAL 18.5 (-2-2.0); BICARBONATE,ARTERIAL 46.6 meq/L (22.0-26.0); O2 SATURATION ARTERIAL 99.8 % (96.0-97.0); PCO2 ARTERIAL 77.0 mmHg (35.0-45.0); PO2 ARTERIAL 90.0 mmHg (80.0-100.0)
[2025-07-21 06:06] LABS: BASOPHILS ABSOLUTE AUTO 0.0 K/mm3 (0.0-0.2); BASOPHILS PERCENT AUTO 0.1 % (0.0-1.0); EOSINOPHILS ABSOLUTE AUTO 0.0 K/mm3 (0.0-0.4); EOSINOPHILS PERCENT AUTO 0.0 % (0.0-6.0); IMMATURE GRAN ABSOLUTE AUTO 0.20 K/mm3 (0.00-0.05); IMMATURE GRAN PERCENT AUTO 0.7 % (0.0-0.4); LYMPHOCYTES ABSOLUTE AUTO 0.8 K/mm3 (1.0-4.8); LYMPHOCYTES PERCENT AUTO 2.8 % (24.0-44.0); MEAN PLATELET VOLUME 11.0 fl (9.4-12.4); MONOCYTES ABSOLUTE AUTO 1.8 K/mm3 (0.0-0.8); MONOCYTES PERCENT AUTO 6.5 % (0.0-8.0); NEUTROPHILS ABSOLUTE AUTO 24.8 K/mm3 (1.8-7.7); NEUTROPHILS PERCENT AUTO 89.9 % (41.0-71.0); NRBC ABSOLUTE 0.00 (0.00-0.02); NRBC PERCENT 0.0 % (0.0-0.2); PLATELET COUNT,PLT 226 K/mm3 (150-400); RED BLOOD CELL COUNT 3.55 M/mm3 (4.52-5.90); WHITE BLOOD CELL COUNT,WBC 27.56 K/mm3 (3.9-11.3)
[2025-07-21 06:33] LABS: A/G RATIO 0.9 (1-2); ALANINE AMINOTRANSFERASE,ALT 44.0 U/L (16-63); ASPARTATE AMNIOTRANSFERASE,AST 91.0 U/L (15-37); BILIRUBIN TOTAL 0.3 mg/dL (0.2-1.0); BLOOD UREA NITROGEN,BUN 29.0 mg/dL (7-18); CHLORIDE,CL 99.0 mEq/L (98-107); CREATININE 0.6 mg/dL (0.7-1.3); EST CRCL DRUG DOSING (CG) 126.67 mL/min; ESTIMATED GFR 111.0 mL/min (>60); GLUCOSE RANDOM 107.0 mg/dL (70-99); POTASSIUM,K 4.1 mEq/L (3.5-5.1); PROTEIN TOTAL,TP 7.0 g/dl (6.4-8.2); SODIUM,NA 145.0 mEq/L (136-145)
[2025-07-21 06:46] LABS: CARBON DIOXIDE,CO2 43.0 mEq/L (21-32)
[2025-07-21] MEDS ORDERED: Prochlorperazine 10 MG/2 ML SDV IM PRN (13:59)
[2025-07-21] MEDS ORDERED: Magnesium Hydroxide 400 MG/5 ML Susp 30 ML Cup PO PRN (13:59)
[2025-07-21] MEDS ORDERED: Ondansetron 4 MG/2 ML SDV IVPUSH PRN (13:59)
[2025-07-21] MEDS: LORazepam 2 MG/ML SDV IVPUSH PRN (16:38)
[2025-07-22] MEDS: Scopalamine 1mg/3day Transdermal Patch TRDERM PRN (20:09)
[2025-07-22] MEDS: LORazepam 2 MG/ML SDV IVPUSH PRN (20:11)
[2025-07-22 23:56] VITALS: BP 160/92; PULSE 73
== END 2025-07-23 03:16 | disposition expired | DRG 189 ==
LOC: JD.ED 12:35 → JD.MS 18:21
PROVIDERS: ADMIT Family Medicine; ATTEND Family Medicine
PROC: 5A09357 Assistance with Respiratory Ventilation, Less than 24 Consecutive Hours, Continuous Positive Airway Pressure (ICD-10-PCS; principal; 2025-07-19)
PROC: 4A133R1 Monitoring of Arterial Saturation, Peripheral, Percutaneous Approach (ICD-10-PCS; principal; 2025-07-19)
PROC: 3E03329 Introduction of Other Anti-infective into Peripheral Vein, Percutaneous Approach (ICD-10-PCS; principal; 2025-07-19)
DX: J96.21 Acute and chronic respiratory failure with hypoxia (principal); G92.8 Other toxic encephalopathy; D64.9 Anemia, unspecified; D72.829 Elevated white blood cell count, unspecified; J44.1 Chronic obstructive pulmonary disease with (acute) exacerbation; E87.29 Other acidosis; I46.9 Cardiac arrest, cause unspecified; Z51.5 Encounter for palliative care; Z66 Do not resuscitate; T73.0XXA Starvation, initial encounter; J96.22 Acute and chronic respiratory failure with hypercapnia; H54.7 Unspecified visual loss; D72.825 Bandemia; E88.89 Other specified metabolic disorders; I10 Essential (primary) hypertension; F17.200 Nicotine dependence, unspecified, uncomplicated; Z99.81 Dependence on supplemental oxygen; Z79.899 Other long term (current) drug therapy; Z98.890 Other specified postprocedural states; Z79.52 Long term (current) use of systemic steroids; X58.XXXA Exposure to other specified factors, initial encounter; Z79.82 Long term (current) use of aspirin
CPT/HCPCS: 36415; 36600; 70450; 70450-26; 71045; 71045-26; 71250; 71250-26; 80053; 81001; 82803; 83605; 83690; 83735; 83880; 84145; 84443; 84484; 85025; 85652; 87637; 93005; 93010; 94640; 94660; 94761; 96374; 99223; 99233; 99238; 99284; 99285-25; A9270-GY; C1758; J0696; J1650; J1956; J2060; J2270; J2919; J7030